=== PATIENT | female | born 1935 | race Two or more races ===

== ENCOUNTER 2021-07-07 13:30 | Emergency (ER) | payer OTHER ==
[~2021-07-07] VITALS: Ht 149.9 cm; Wt 72.6 kg
[2021-07-07] MEDS ORDERED: NAMENDA10 MG PO (14:29)
[2021-07-07] MEDS ORDERED: CITALOPRAM20 MG/10 M PO (14:30)
[2021-07-07] MEDS ORDERED: COZAAR25 MG PO (14:30)
[2021-07-07] MEDS ORDERED: SINGULAIR 10MG10 MG PO (14:30)
[2021-07-07] MEDS ORDERED: EXELON1 EAC1 TD (14:31)
[2021-07-07] MEDS ORDERED: SIMVASTATIN5 MG PO (14:31)
[2021-07-07] MEDS ORDERED: PULMICORT1 MG/2 ML IH (14:32)
[2021-07-07] MEDS ORDERED: ULTRAM50 MG PO (18:53)
== END 2021-07-07 18:56 | disposition home or self-care (01) ==
LOC: ER 13:30
DX: S30.0XXA Contusion of lower back and pelvis, initial encounter (principal); W06.XXXA Fall from bed, initial encounter; Y93.89 Activity, other specified; Y92.092 Bedroom in other non-institutional residence as the place of occurrence of the external cause; Y99.8 Other external cause status

== ENCOUNTER 2023-02-01 21:14 | Emergency (ER) | payer OTHER ==
[~2023-02-01] VITALS: Ht 152.4 cm; Wt 48.5 kg
[~2023-02-01 21:14] MED LIST: CITALOPRAM20 MG/10 M PO; COZAAR25 MG PO; EXELON1 EAC1 TD; NAMENDA10 MG PO; PULMICORT1 MG/2 ML IH; SIMVASTATIN5 MG PO; SINGULAIR 10MG10 MG PO; ULTRAM50 MG PO
[2023-02-01] MEDS ORDERED: NAMENDA5 MG PO (21:39)
== END 2023-02-01 23:58 | disposition home or self-care (01) ==
LOC: ER 21:14
DX: M79.601 Pain in right arm (principal); M25.551 Pain in right hip; M54.2 Cervicalgia

== ENCOUNTER 2023-08-12 12:40 | Inpatient (IN) | payer OTHER ==
[~2023-08-12] VITALS: Ht 154.9 cm; Wt 45.4 kg
[~2023-08-12 12:40] MED LIST changes: +NAMENDA5 MG PO
[2023-08-12 14:00] LABS: ABG PH 7.445 (7.35-7.45); ABG PO2 44.2 mmHg (80-100); ABG pCO2 30.2 mmHg (35-45); BASE EXCESS -2.5 mmol/l; SaO2 81.8 %
[2023-08-12 14:01] LABS: BICARBONATE 20.3 mmol/l (23-25); Tco2 21.2 mmol/l; allen test SATISFACTORY; o2 32 %; puncture site RADIAL RIGHT
[2023-08-12 14:31] LABS: HEMATOCRIT 39.8 % (36.0-45.00); HEMOGLOBIN 13.1 g/dL (12.0-15.00); MEAN CELL VOLUME 93.5 fL (80.00-100.00); MEAN CORPUSCULAR HEMOGLOBIN 30.7 pg (27.00-32.0); MEAN CORPUSCULAR HGB CONC 32.8 g/dl (32.0-36.0); PLATELET COUNT 235 K/uL (150-450); RED BLOOD COUNT 4.26 M/uL (4.00-6.00); RED CELL DISTRIBUTION WIDTH 13.6 % (11.5-14.5)
[2023-08-12 14:52] LABS: CALCIUM 8.1 mg/dL (8.5-10.1); CREATININE SERUM 1.47 mg/dL (0.55-1.02); GFR 33.54; POTASSIUM 4.3 mEq/L (3.5-5.1)
[2023-08-12 17:08] LABS: ABG PH 7.423 (7.35-7.45); ABG PO2 113.3 mmHg (80-100); BASE EXCESS -2.4 mmol/l; BICARBONATE 21.1 mmol/l (23-25); SaO2 98.5 %; Tco2 22.1 mmol/l
[2023-08-12 17:11] LABS: allen test SATISFACTORY; o2 100 %; puncture site RADIAL RIGHT
[2023-08-12 18:05] LABS: URINE APPEARANCE Cloudy; URINE BILIRRUBIN Negative (NEGATIVE); URINE BLOOD Negative; URINE COLOR Dark Yellow; URINE GLUCOSE Negative (NEGATIVE); URINE LEUKOCYTE Trace; URINE NITRATE Negative
[2023-08-12 18:08] LABS: URINE BACTERIA 93.2 uL (0.0-1933); URINE RBC 23.5 uL (0.0-20.8); URINE WBC 10.9 uL (0.0-23.2)
[2023-08-12 18:19] LABS: URINE MUCUS MODERATE; URINE PROTEIN 100 (NEGATIVE)
[2023-08-12 18:20] LABS: URINE CRYSTALS FEW /HPF
[2023-08-12 21:09] LABS: ABG PH 7.314 (7.35-7.45); ABG PO2 207.6 mmHg (80-100); ABG pCO2 41.7 mmHg (35-45); BASE EXCESS -5.2 mmol/l; BICARBONATE 20.7 mmol/l (23-25); SaO2 99.6 %
[2023-08-12 21:53] LABS: allen test SATISFACTORY; o2 100 %; puncture site RADIAL RIGHT
[2023-08-13 05:34] LABS: ABG PO2 139.4 mmHg (80-100); ABG pCO2 59.2 mmHg (35-45); BASE EXCESS -6.8 mmol/l; BICARBONATE 22.2 mmol/l (23-25); SaO2 98.2 %
[2023-08-13 07:19] LABS: ABG PH 7.193 (7.35-7.45)
[2023-08-13 07:20] LABS: allen test SATISFACTORY; o2 70 %; puncture site RADIAL RIGHT
[2023-08-13 07:29] LABS: HEMATOCRIT 33.7 % (36.0-45.00); HEMOGLOBIN 11.4 g/dL (12.0-15.00); MEAN CELL VOLUME 93.9 fL (80.00-100.00); MEAN CORPUSCULAR HEMOGLOBIN 31.7 pg (27.00-32.0); MEAN CORPUSCULAR HGB CONC 33.7 g/dl (32.0-36.0); PLATELET COUNT 206 K/uL (150-450); RED BLOOD COUNT 3.59 M/uL (4.00-6.00); RED CELL DISTRIBUTION WIDTH 13.8 % (11.5-14.5)
[2023-08-13 07:39] LABS: BILIRUBIN TOTAL 0.32 mg/dL (0.3-1.2); CALCIUM 7.6 mg/dL (8.5-10.1); CREATININE SERUM 1.61 mg/dL (0.55-1.02); GFR 30.2; GLOBULINA 6.1 G/DL (2.4-3.5); PHOSPHOROUS 4.7 mg/dL (2.5-4.9); POTASSIUM 4.87 mEq/L (3.5-5.1); TOTAL PROTEIN 8.1 gm/dL (6.4-8.2)
[2023-08-13 21:37] LABS: ALBUMIN 1.8 gm/dL (3.4-5.0); BILIRUBIN TOTAL 0.27 mg/dL (0.3-1.2); CREATININE SERUM 1.43 mg/dL (0.55-1.02); GFR 34.63; GLOBULINA 5.6 G/DL (2.4-3.5); POTASSIUM 4.38 mEq/L (3.5-5.1); TOTAL PROTEIN 7.4 gm/dL (6.4-8.2)
[2023-08-13 22:02] LABS: CALCIUM 6.5 mg/dL (8.5-10.1)
[2023-08-14 07:45] LABS: ABG PH 7.229 (7.35-7.45); ABG PO2 142.7 mmHg (80-100); ABG pCO2 56.3 mmHg (35-45); BASE EXCESS -5.4 mmol/l; SaO2 98.5 %; Tco2 24.7 mmol/l
[2023-08-14 07:54] LABS: o2 70 %; puncture site RADIAL RIGHT
[2023-08-14 07:55] LABS: allen test SATISFACTORY
[2023-08-14 11:52] LABS: CREATININE SERUM 1.36 mg/dL (0.55-1.02); GFR 36.69; MAGNESIUM 2.4 mg/dL (1.8-2.4); POTASSIUM 4.26 mEq/L (3.5-5.1)
[2023-08-14 12:17] LABS: CALCIUM 6.1 mg/dL (8.5-10.1)
[2023-08-15 06:31] LABS: HEMATOCRIT 35.1 % (36.0-45.00); HEMOGLOBIN 11.6 g/dL (12.0-15.00); MEAN CELL VOLUME 94.3 fL (80.00-100.00); MEAN CORPUSCULAR HEMOGLOBIN 31.2 pg (27.00-32.0); MEAN CORPUSCULAR HGB CONC 33.1 g/dl (32.0-36.0); PLATELET COUNT 133 K/uL (150-450); RED BLOOD COUNT 3.73 M/uL (4.00-6.00); RED CELL DISTRIBUTION WIDTH 14.2 % (11.5-14.5)
[2023-08-15 07:16] LABS: CALCIUM 6.8 mg/dL (8.5-10.1); CREATININE SERUM 1.13 mg/dL (0.55-1.02); GFR 45.44; MAGNESIUM 2.3 mg/dL (1.8-2.4); POTASSIUM 4.22 mEq/L (3.5-5.1)
[2023-08-15 07:23] LABS: ALBUMIN 1.9 gm/dL (3.4-5.0); BILIRUBIN TOTAL 0.28 mg/dL (0.3-1.2); CALCIUM 6.9 mg/dL (8.5-10.1); CREATININE SERUM 1.14 mg/dL (0.55-1.02); GFR 44.98; GLOBULINA 5.4 G/DL (2.4-3.5); POTASSIUM 4.16 mEq/L (3.5-5.1); TOTAL PROTEIN 7.3 gm/dL (6.4-8.2)
[2023-08-15 08:53] LABS: ABG PH 7.262 (7.35-7.45); ABG PO2 171.5 mmHg (80-100); ABG pCO2 47.6 mmHg (35-45); BASE EXCESS -6.2 mmol/l; SaO2 99.2 %; Tco2 22.4 mmol/l; allen test SATISFACTORY; puncture site RADIAL RIGHT
[2023-08-15 08:54] LABS: o2 70 %
[2023-08-16 08:39] LABS: ABG PH 7.284 (7.35-7.45); ABG PO2 68.3 mmHg (80-100); ABG pCO2 48.4 mmHg (35-45); BASE EXCESS -4.5 mmol/l; BICARBONATE 22.5 mmol/l (23-25); SaO2 90.3 %; allen test SATISFACTORY; puncture site RADIAL RIGHT
[2023-08-16 08:40] LABS: o2 50 %
[2023-08-16 11:39] LABS: ALBUMIN 1.6 gm/dL (3.4-5.0); BILIRUBIN TOTAL 0.39 mg/dL (0.3-1.2); CALCIUM 7.5 mg/dL (8.5-10.1); CREATININE SERUM 1.06 mg/dL (0.55-1.02); GFR 48.92; GLOBULINA 4.7 G/DL (2.4-3.5); MAGNESIUM 2.2 mg/dL (1.8-2.4); POTASSIUM 3.91 mEq/L (3.5-5.1); TOTAL PROTEIN 6.3 gm/dL (6.4-8.2)
[2023-08-16 11:45] LABS: HEMATOCRIT 36.3 % (36.0-45.00); HEMOGLOBIN 11.4 g/dL (12.0-15.00); MEAN CELL VOLUME 95.2 fL (80.00-100.00); MEAN CORPUSCULAR HEMOGLOBIN 29.9 pg (27.00-32.0); MEAN CORPUSCULAR HGB CONC 31.4 g/dl (32.0-36.0); RED BLOOD COUNT 3.81 M/uL (4.00-6.00); RED CELL DISTRIBUTION WIDTH 13.8 % (11.5-14.5)
[2023-08-16 11:46] LABS: PLATELET COUNT 88 K/uL (150-450)
[2023-08-17 06:58] LABS: HEMATOCRIT 34.1 % (36.0-45.00); HEMOGLOBIN 11.1 g/dL (12.0-15.00); MEAN CELL VOLUME 95.7 fL (80.00-100.00); MEAN CORPUSCULAR HEMOGLOBIN 31.1 pg (27.00-32.0); MEAN CORPUSCULAR HGB CONC 32.5 g/dl (32.0-36.0); RED BLOOD COUNT 3.57 M/uL (4.00-6.00); RED CELL DISTRIBUTION WIDTH 14.7 % (11.5-14.5)
[2023-08-17 07:01] LABS: PLATELET COUNT 68 K/uL (150-450)
[2023-08-17 07:02] LABS: ALBUMIN 1.5 gm/dL (3.4-5.0); BILIRUBIN TOTAL 0.26 mg/dL (0.3-1.2); CALCIUM 7.3 mg/dL (8.5-10.1); CREATININE SERUM 1.35 mg/dL (0.55-1.02); GFR 37.01; GLOBULINA 4.1 G/DL (2.4-3.5); MAGNESIUM 2.2 mg/dL (1.8-2.4); PHOSPHOROUS 4.3 mg/dL (2.5-4.9); POTASSIUM 4.4 mEq/L (3.5-5.1); TOTAL PROTEIN 5.6 gm/dL (6.4-8.2)
[2023-08-17 16:15] LABS: INR 1.5
[2023-08-17 16:26] LABS: PARTIAL THROMBOPLASTIN TIME 47.6 SECONDS (22.0-34.0); PROTHROMBIN TIME 15.3 SECONDS (9.0-11.5)
== END 2023-08-18 03:54 | disposition expired | DRG 208 ==
LOC: ER 12:40 → ICU-2 18:43 → ICU 08-16 22:15
PROVIDERS: Emergency Medicine; Internal Medicine; ADMIT Internal Medicine; ATTEND Internal Medicine
PROC: 5A1945Z Respiratory Ventilation, 24-96 Consecutive Hours (ICD-10-PCS; principal; 2023-08-12)
PROC: 0BH17EZ Insertion of Endotracheal Airway into Trachea, Via Natural or Artificial Opening (ICD-10-PCS; 2023-08-12)
PROC: BB24ZZZ Computerized Tomography (CT Scan) of Bilateral Lungs (ICD-10-PCS; 2023-08-12)
PROC: B020ZZZ Computerized Tomography (CT Scan) of Brain (ICD-10-PCS; 2023-08-12)
PROC: B246ZZZ Ultrasonography of Right and Left Heart (ICD-10-PCS; 2023-08-13)
PROC: 3E0F7GC Introduction of Other Therapeutic Substance into Respiratory Tract, Via Natural or Artificial Opening (ICD-10-PCS; 2023-08-13)
PROC: 3E0G76Z Introduction of Nutritional Substance into Upper GI, Via Natural or Artificial Opening (ICD-10-PCS; 2023-08-13)
PROC: 02HV33Z Insertion of Infusion Device into Superior Vena Cava, Percutaneous Approach (ICD-10-PCS; 2023-08-14)
DX: J96.01 Acute respiratory failure with hypoxia (principal); A41.9 Sepsis, unspecified organism; J69.0 Pneumonitis due to inhalation of food and vomit; I21.A1 Myocardial infarction type 2; R65.21 Severe sepsis with septic shock; I50.33 Acute on chronic diastolic (congestive) heart failure; B37.1 Pulmonary candidiasis; N39.0 Urinary tract infection, site not specified; N17.9 Acute kidney failure, unspecified; I13.0 Hypertensive heart and chronic kidney disease with heart failure and stage 1 through stage 4 chronic kidney disease, or unspecified chronic kidney disease; I24.9 Acute ischemic heart disease, unspecified; E87.0 Hyperosmolality and hypernatremia; E87.4 Mixed disorder of acid-base balance; E46 Unspecified protein-calorie malnutrition; Z68.1 Body mass index [BMI] 19.9 or less, adult; J84.10 Pulmonary fibrosis, unspecified; R57.0 Cardiogenic shock; D69.6 Thrombocytopenia, unspecified; I25.10 Atherosclerotic heart disease of native coronary artery without angina pectoris; N18.9 Chronic kidney disease, unspecified; E03.9 Hypothyroidism, unspecified; G47.33 Obstructive sleep apnea (adult) (pediatric); Z99.81 Dependence on supplemental oxygen; Z66 Do not resuscitate